=== PATIENT | female | born 1955 | race Hispanic/Latino ===

== ENCOUNTER 2017-08-06 17:28 | Emergency (ER) | payer OTHER ==
[~2017-08-06] VITALS: Ht 167.6 cm; Wt 84.4 kg
[~2017-08-06 17:28] MED LIST: 0; FLOMAX0.4 M1 PO; PERCOCET 5-3251 EACH PO
[2017-08-06 18:49] LABS: ABSOLUTE BASOPHIL COUNT 0 /CUMM (0.0-0.2); ABSOLUTE EOSINOPHIL COUNT 0 /CUMM (0.0-0.7); ABSOLUTE GRANULOCYTE CT 14.5 /CUMM (1.4-6.5); ABSOLUTE LYMPH COUNT 1.3 /CUMM (1.2-3.4); ABSOLUTE MONOCYTE COUNT 0.6 /CUMM (0.10-0.60); BASOPHIL % 0.2 % (0.0-2.0); EOSINOPHIL % 0 % (0-5); HEMATOCRIT 42.8 % (37-47); MEAN CORPUSCULAR HGB 28.4 PG (27.0-31.0); MEAN CORPUSCULAR HGB CONC 33.8 G/DL (33.0-37.0); MEAN CORPUSCULAR VOLUME 83.9 FL (81.0-99.0); MEAN PLATELET VOLUME 10.3 FL (7.4-10.4); PLATELET COUNT 227 /CUMM (130-400); RBC DISTRIBUTION WIDTH 13.6 % (11.5-14.5)
[2017-08-06 18:56] LABS: WHITE BLOOD CELL COUNT 16.5 /CUMM (4.8-10.8)
--- NOTE | 2017-08-06 19:14 | RADIOLOGY REPORT ---
EXAMINATION: XR CHEST CLINICAL INFORMATION: Cough and fever. Rule out pneumonia. COMPARISON: Chest x-ray from 04/22/2016. TECHNIQUE: 2 views of the chest were obtained. FINDINGS: No airspace opacities or pleural effusions are seen. The cardiomediastinal silhouette is normal. No acute osseous abnormality is seen. IMPRESSION: No acute cardiopulmonary process.
--- NOTE | 2017-08-06 19:19 | ED GI/GU/ABDOMINAL COMPLAINT ---
History of Present Illness General Chief Complaint: Nausea, Vomiting, Diarrhea Stated Complaint: +NVD AND CHILLS Source: patient, family Exam Limitations: language barrier Allergies Coded Allergies: NO KNOWN ALLERGIES (03/02/17) Reconcile Medications [0] HONEY WAS SEEN IN THIS ER, NO WORK 03/03-03/04 Oxycodone HCl/Acetaminophen (Percocet 5-325 MG Tablet) 5 MG-325 MG TABLET 1 TAB PO BID PAIN Tamsulosin HCl (Flomax) 0.4 MG CAP.ER.24H 1 CAP PO DAILY KIDNEY STONE Triage Note: RECEIVED 61 YO FEMALE WITH C/O STOMACH PAIN X 2 WEEKS WITH NAUSEA AND VOMITING. PT ALSO REPORTS THROAT PAIN AND PAIN TO ARMS AND LEGS BILATERALLY. PT SEEN PMD TWICE AND PRESCRIBED MEDS AND ANTIBIOTICS. ABDOMIN PAIN IS MID UPPER QUADRENT, NOT AFFECTED BY EATING. PT TOLERATING PO Triage Nurses Notes Reviewed? yes ? N Is pt currently ? No Onset: Gradual Duration: constant Timing: recent history Quality/Severity: moderate Severity Numbers: 5 Location: generalized abdomen HPI: Patient is 61-year-old female with past medical history of gallstones, hypertension and kidney stones who presents emergency room with concerns of a 2 week history of intermittent fever chills coughing abdominal discomfort and pain and generalized weakness and fatigue and sore throat where she has been given 2 courses of antibiotics of Augmentin and doxycycline in which patient in the past week is also developed intermittent nausea and loose watery diarrhea production. Patient has a remote history of appendectomy Denies any similar sick contacts or smoking history Denies any chest pain arm pain jaw pain shortness of breath leg swelling hemoptysis Patient today is able tolerate by mouth however has had decreased intake (Phong Zhong) Vital Signs & Intake/Output Vital Signs & Intake/Output Vital Signs Date Time Temp Pulse Resp B/P B/P Pulse O2 O2 Flow FiO2 Mean Ox Delivery Rate 08/06 2215 99.1 78 17 102/58 100 Room Air ED Intake and Output 08/07 0000 04 1200 Intake Total 1000 Output Total Balance 1000 Intake, IV 1000 Patient 186 lb Weight Weight Estimated Measurement Method (Aarti Villareal) Past History Travel History Traveled to [place] past 21 day No Medical History Any Pertinent Medical History? see below for history Neurological: NONE EENT: NONE Cardiovascular: hypertension Respiratory: NONE Gastrointestinal: gall stones Hepatic: NONE Renal: NONE Musculoskeletal: NONE Psychiatric: NONE Endocrine: NONE Blood Disorders: NONE Cancer(s): NONE Surgical History Surgical History: non-contributory Psychosocial History What is your primary language Serbian Tobacco Use: Never used Family History Hx Contributory? No (Phong Zhong) Review of Systems Review of Systems Constitutional: Reports: see HPI, fever. EENTM: Reports: see HPI. Respiratory: Reports: see HPI, cough. Cardiovascular: Reports: see HPI. Denies: chest pain. GI: Reports: see HPI, abdominal pain, diarrhea, nausea, vomiting. Genitourinary: Reports: no symptoms. Musculoskeletal: Reports: see HPI. Skin: Reports: no symptoms. Neurological/Psychological: Reports: no symptoms. Hematologic/Endocrine: Reports: no symptoms. Immunologic/Allergic: Reports: no symptoms. All Other Systems: Reviewed and Negative (Phong Zhong) Physical Exam Physical Exam General Appearance: alert, awake, obese Head: atraumatic Eyes: Bilateral: normal appearance, PERRL, EOMI. Ears, Nose, Throat, Mouth: hearing grossly normal Neck: normal inspection Respiratory: normal breath sounds, chest non-tender, no respiratory distress Cardiovascular: tachycardia Gastrointestinal: normal bowel sounds, soft, tenderness (MILD GENERALIZED) Extremities: normal range of motion Neurologic/Psych: no motor/sensory deficits, awake Skin: intact, normal color Core Measures ACS in differential dx? No Sepsis Present: Yes Sepsis Focused Exam Completed? Yes (Phong Zhong) Progress Differential Diagnosis: AAA, AMI, biliary colic, bowel obstruction, colon cancer , cholecystitis, diverticulitis, endometritis, esophageal varices, gastritis, hepatitis, hernia, hemorrhoids, ischemic bowel, inflamm bowel dis, kidney stone, ovarian cyst, ovarian torsion, pancreatitis, PID/cervicitis, peptic ulcer, PUD/ GERD, perforated viscous, SBO, UTI/pyelo Diagnostic Imaging: Viewed by Me: Radiology Read. Initial ED EKG: PENDING HAND OFF Hand-Off Endorsed To: Aarti Villareal Endorsed Time: 1954 Pending: CT, EKG, labs Comments: PATIENT: HONEY SPENCER PRESENT AGE: 61 PATIENT ACCOUNT NO: [id number] : 59 LOCATION: [facility] ([facility] ORDERING PHYSICIAN: Georgie QUINTERO SERVICE DATE: 08/06/17 EXAM TYPE: RAD - XRY-CHEST XRAY, TWO VIEWS EXAMINATION: XR CHEST CLINICAL INFORMATION: Cough and fever. Rule out pneumonia. COMPARISON: Chest x-ray from 04/22/2016. TECHNIQUE: 2 views of the chest were obtained. FINDINGS: No airspace opacities or pleural effusions are seen. The cardiomediastinal silhouette is normal. No acute osseous abnormality is seen. IMPRESSION: No acute cardiopulmonary process. DICTATED BY: Lamont De La O MD DATE/TIME DICTATED:08/06/171909 SHIFT PRODUCTION SUPERVISOR:JOSE D DATE/TIME TRANSCRIBED:08/06/17 / (Phong Zhong) Plan of Care: Laboratory Tests 08/06/17 2100: Urine Color YEL, Urine Clarity CLEAR, Urine pH 6.0, Ur Specific [place] <= 1.005 , Urine Protein NEG, Urine Ketones NEG, Urine Nitrite NEG, Urine Bilirubin NEG, Urine Urobilinogen 0.2, Ur Leukocyte Esterase NEG, Ur Microscopic SEDIMENT EXAMINED, Urine RBC RARE, Urine WBC RARE, Ur Epithelial Cells RARE, Urine Bacteria RARE H, Urine Mucus RARE, Urine Hemoglobin TRACE-INTACT, Urine Glucose NEG Microbiology 08/07 2131 BLOOD: Blood Culture - RES Patient on initial presentation and clear lungs auscultation and mild generalized abdominal pain however is noted to be febrile and leukocytosis exist , Differential diagnoses include C. difficile Patient declines any pain medications when offered DISCUSSED HAND OFF WITH AARTI SAVAGE PA-C FOR HANDOFF CT SCAN, EKG PENDING. (Phong Zhong) (Aarti Villareal) Comments: Updated by microbiology 1/2 blood cultures with Gram positive cocci in clusters. Spoke to spouse Vicente, the patient is doing better, to continue antibiotcs and advised final results should be back tomorrow. (Balwinder Palomo MD) ED Sepsis Exam Date of Focused Sepsis Exam: 08/06/17 Time of Focused Sepsis Exam: 1945 Sepsis Cardiac Exam: Tachycardia Sepsis Resp Exam: CTA Sepsis Cap Refill Exam: <2 Sec Sepsis Peripheral Pulse Exam: Normal Sepsis Peripheral Pulse Location: Radial Sepsis Skin Color Exam: Normal for Ethnicity Skin Temp/Moisture Exam: Warm/Dry (Phong Zhong) Departure Departure Disposition: STILL A PATIENT Condition: Stable Clinical Impression Primary Impression: Fever Secondary Impressions: URI (upper respiratory infection) Referrals: Vida Gastelum (PCP/Family) Departure Forms: Customer Survey General Discharge Information (Phong Zhong) Departure Additional Instructions: Continue taking antibiotics. Follow-up with your primary care doctor. Return if any concerns worsening symptoms. Please go over all results of today's visit with your primary care doctor. Contact your primary care doctor to let them know you were here in the emergency room. There may be nonspecific findings which may not be related to your visit today here in the emergency room but may require further evaluation and chronic monitoring by your primary care doctor. If you had a laceration today the chance of foreign body always remains. You should follow-up with your primary care doctor for recheck in 3-5 days for a wound check. If you had an x-ray done there is a chance that a fracture could have been missed on initial read and you should follow-up with your primary care doctor for repeat x-rays if symptoms persist. If your blood pressure was elevated here in the emergency room please have rechecked by [facility] primary care doctor within the next 48. If you were prescribed a narcotic here in the emergency room or any type of controlled substances you're not allowed to drive while taking this medication or operate any type of heavy machinery. Narcotics can make you feel lightheaded dizziness nausea and can cause constipation. You may need to order picker a stool softener. Thank you for choosing [facility] emergency room. Please return to the emergency room immediately if you have any other concerns worsening of symptoms. (Aarti Villareal) care doctor for recheck in 3-5 days for a wound check. If you had an x-ray done there is a chance that a fracture could have been missed on initial read and you should follow-up with your primary care doctor for repeat x-rays if symptoms persist. If your blood pressure was elevated here in the emergency room please have rechecked by [facility] primary care doctor within the next 48. If you were prescribed a narcotic here in the emergency room or any type of controlled substances you're not allowed to drive while taking this medication or operate any type of heavy machinery. Narcotics can make you feel lightheaded dizziness nausea and can cause constipation. You may need to order picker a stool softener. Thank you for choosing [facility] emergency room. Please return to the emergency room immediately if you have any other concerns worsening of symptoms. (Aarti Villareal) Jacques QUINTERO,Vida Barger (PCP/Family) Departure Forms: Customer Survey General Discharge Information (Milka QUINTERO,Phong) Departure Additional Instructions: Continue taking antibiotics. Follow-up with your primary care doctor. Return if any concerns worsening symptoms. Please go over all results of today's visit with your primary care doctor. Contact your primary care doctor to let them know you were here in the emergency room. There may be nonspecific findings which may not be related to your visit today here in the emergency room but may require further evaluation and chronic monitoring by your primary care doctor. If you had a laceration today the chance of foreign body always remains. You should follow-up with your primary care doctor for recheck in 3-5 days for a wound check. If you had an x-ray done there is a chance that a fracture could have been missed on initial read and you should follow-up with your primary care doctor for repeat x-rays if symptoms persist. If your blood pressure was elevated here in the emergency room please have rechecked by [facility] primary care doctor within the next 48. If you were prescribed a narcotic here in the emergency room or any type of controlled substances you're not allowed to drive while taking this medication or operate any type of heavy machinery. Narcotics can make you feel lightheaded dizziness nausea and can cause constipation. You may need to order picker a stool softener. Thank you for choosing [facility] emergency room. Please return to the emergency room immediately if you have any other concerns worsening of symptoms. (Waylon QUINTERO,Aarti)
--- NOTE | 2017-08-06 20:21 | CT SCAN REPORT ---
EXAMINATION: CT CHEST, ABDOMEN AND PELVIS WITH CONTRAST CLINICAL INFORMATION: Fever, cough, pain. COMPARISON: 03/02/2017. TECHNIQUE: Contiguous axial thin section helical images of the chest, abdomen and pelvis were performed following the administration of oral contrast and 95 mL of intravenous Optiray 320. The data set was reformatted in the coronal and sagittal planes and reviewed on an independent workstation. DLP: 710 mGy-cm. FINDINGS: The heart is of normal size. There is no pericardial effusion. There is neither mediastinal, hilar nor axillary lymphadenopathy. There are no chest wall masses. Review of lung windows demonstrates that there are neither pleural effusions nor pneumothoraces. There are no consolidations. There are no pulmonary parenchymal nodules. There is a small hiatal hernia. The liver is of normal size and diffuse decreased attenuation without focal lesions nor intrahepatic biliary ductal dilation. There are calculi within the gallbladder lumen. There is no wall thickening or discernible pericholecystic fluid. The spleen, pancreas, adrenal glands are unremarkable. Both kidneys are of normal size and attenuation without hydronephrosis or nephrolithiasis. Following the administration of IV contrast, prompt symmetric nephrograms are displayed. There is no abdominal free fluid. There is neither mesenteric nor retroperitoneal lymphadenopathy. Normal opacified loops of small and large bowel are identified. There is no pelvic free fluid. The urinary bladder is unremarkable. There is neither pelvic nor inguinal lymphadenopathy. Bone windows: Neither sclerotic nor lytic bone lesions are identified. IMPRESSION: No evidence for acute thoracic, abdominal nor pelvic inflammatory or infectious processes. Cholelithiasis without evidence of cholecystitis. Small hiatal hernia. Hepatic steatosis.
[2017-08-06 22:15] VITALS: BP 102/58
== END 2017-08-06 22:17 ==
LOC: ERH 17:28
PROVIDERS: Physician Assistant
DX: J06.9 Acute upper respiratory infection, unspecified (principal)
CPT/HCPCS: 71046; 74177; 81001; 87040; 87045; 87147; 87804; 87804-59; 93005; 93010; 96374; J0131; J3101